=== PATIENT | female | born 1940 | race Caucasian/White ===

== ENCOUNTER 2017-10-24 21:20 | Emergency (ER) | payer OTHER ==
[~2017-10-24] VITALS: Ht 152.4 cm; Wt 43.1 kg
[2017-10-24] MEDS ORDERED: ADENOSINE 6 MG/2 ML INJ IV ONE ×4 (21:43→23:30)
[2017-10-24] MEDS ORDERED: LORazepam 2MG/ML-1ML VIAL ONE (21:53)
[2017-10-24 22:44] LABS: Eosinophils # (auto) 0.1 uL; Monocytes # (auto) 1.8 uL; Neutrophils # (auto) 13.9 uL; Nucleated Red Blood Cells % 0.1 %
[2017-10-24 22:49] LABS: Basophils # (auto) 0 uL; Basophils % (auto) 0.2 % (0.0-2.0); Eosinophils % (auto) 0.4 % (0.0-7.0); Hemoglobin 15.3 g/dL (12.2-16.2); Lymphocytes # (auto) 1.1 uL; Lymphocytes % (auto) 6.7 % (10.0-50.0); Mean Corpuscular Hemoglobin 31.2 pg (28.0-32.0); Mean Corpuscular Hgb Conc. 32.7 g/dL (32.0-36.0); Mean Corpuscular Volume 95.5 fL (80.0-100.0); Monocytes % (auto) 10.8 % (0.0-12.0); Neutrophils % (auto) 81.9 % (37.0-80.0); Platelet Count (auto) 173 10^3/uL (140-450); Red Blood Cells 4.92 10^6/uL (4.0-5.20); Red Cell Distribution Width 14.7 % (11.8-14.3)
[2017-10-24 22:51] LABS: Albumin 2.6 g/dL (3.4-5.0); BUN/Creatinine Ratio 46.6; Calcium 7.2 mg/dL (8.5-10.1); Magnesium 1.7 mg/dL (1.6-2.6); Potassium 3.1 mmol/L (3.5-5.1)
[2017-10-24 22:52] LABS: Bilirubin, Total 2.6 mg/dL (0.2-1.0); Total Protein 5.3 g/dL (6.4-8.2)
[2017-10-24] MEDS ORDERED: MIDAZOLAM HCL 5 MG/ML-1ML VIAL IM ONE (22:57)
[2017-10-24 22:58] LABS: INR 1.28 (0.9-1.15)
[2017-10-24] MEDS ORDERED: DIGOXIN (250MCG/ML) 2 ML AMPULE IV ONE (23:15)
[2017-10-24] MEDS ORDERED: MIDAZOLAM HCL 1MG/1ML-2 ML VIAL IV ONE (23:30)
[2017-10-24] MEDS ORDERED: LORazepam 2MG/ML-1ML VIAL IV ONE (23:30)
[2017-10-25] MEDS ORDERED: SODIUM CHLORIDE 0.9% 500 ML IV ONE ×2 (00:45)
[2017-10-25] MEDS ORDERED: POTASSIUM CHL 20 Meq TABLET PO ONE (01:00)
[2017-10-25 06:14] VITALS: BP 102/56
== END 2017-10-25 06:39 | disposition home or self-care (01) ==
LOC: EDBD 21:20 → ER 21:25
DX: I48.91 Unspecified atrial fibrillation (principal); I50.9 Heart failure, unspecified; I11.0 Hypertensive heart disease with heart failure; E78.5 Hyperlipidemia, unspecified; Z95.1 Presence of aortocoronary bypass graft; Z88.0 Allergy status to penicillin; Z88.1 Allergy status to other antibiotic agents; Z88.2 Allergy status to sulfonamides
CPT/HCPCS: 36415; 71045; 80053; 83735; 83880; 84443; 84484; 85025; 85379; 85610; 85730; 92960; 96361; 96374; 96375; 99291; J0153; J2060; J7040; 93005; J2250